=== PATIENT | male | born 1965 | race African-American/Black ===

== ENCOUNTER 2019-03-24 15:17 | Emergency (ER) | payer OTHER ==
[2019-03-24 15:47] VITALS: BP 126/67; PULSE 85; TEMP 97.5; BMI 42.5
--- NOTE | 2019-03-24 15:47 | PDOC ---
Rapid Medical Evaluation Chief Complaint: Injury Time Seen by Provider: 03/24/19 15:43 Medical Evaluation: Allergies Allergy/AdvReac Type Severity Reaction Status Date / Time No Known Allergies Allergy Verified 03/24/19 15:43 03/24/19 15:45 Pt c/o:fell at work down 3 stairs, abrasion to left elbow, pain to back and left neck Pt on brief exam: FROM of left elbow, no midline tenderness Pt ordered for: none Pt to proceed to the ED Discharge Disposition - Diagnosis Fall, Cervical strain, Lumbar strain - Discharge Dispostion Disposition: HOME Condition at time of disposition: Stable - Prescriptions Prescriptions: Cyclobenzaprine HCl [Flexeril 10 mg] 10 mg PO HS PRN #10 tablet PRN Reason: Muscle Spasms Ibuprofen [Motrin -] 600 mg PO TID #30 tablet - Referrals Referrals: Rakesh Oneil MD, [facility] [Staff Physician] - Aamir Chang [Primary Care Provider] - - Patient Instructions Additional Instructions: Please take the Motrin Flexeril as directed. Return to the emergency room for worsening symptoms and without fail follow-up with neurosurgery in 1 to 2 days for further evaluation and treatment options. - Post Discharge Activity Work/School Note: Back to Work
--- NOTE | 2019-03-24 16:18 | PDOC ---
History of Present Illness - General Chief Complaint: Injury Stated Complaint: FALL Time Seen by Provider: 03/24/19 15:43 - History of Present Illness Initial Comments: 03/24/19 16:13 53-year-old male without comorbidities presents for evaluation of neck and lower back pain after a fall down a few steps earlier today while at work. No radicular or systemic symptoms. No headaches post injury nausea vomiting or visual changes. Only left-sided neck and shoulder pain and lower back pain without radicular symptoms loss of bowel or bladder function or saddle paresthesias Past History - Past Medical History Allergies/Adverse Reactions: Allergies Allergy/AdvReac Type Severity Reaction Status Date / Time No Known Allergies Allergy Verified 03/24/19 15:43 Home Medications: Ambulatory Orders Cyclobenzaprine HCl [Flexeril 10 mg] 10 mg PO HS PRN #10 tablet 03/24/19 Ibuprofen [Motrin -] 600 mg PO TID #30 tablet 03/24/19 CVA: No COPD: No CHF: No DVT: No Dementia: No HTN: Yes - Immunization History Immunization Up to Date: Yes - Psycho Social/Smoking Cessation Hx Smoking History: Never smoked Hx Alcohol Use: No Drug/Substance Use Hx: No Review of Systems - Review of Systems Musculoskeletal: Yes: Back Pain, Joint Pain, Neck Pain *Physical Exam - Vital Signs Last Vital Signs Temp Pulse Resp BP Pulse Ox 97.5 F L 85 16 126/67 97 03/24/19 15:44 03/24/19 15:44 03/24/19 15:44 03/24/19 15:44 03/24/19 15:44 - Physical Exam 03/24/19 16:14 GENERAL: The patient is awake, alert, and fully oriented, in no acute distress. HEAD: Normal with no signs of trauma. EYES: sclera anicteric, conjunctiva clear. ENT: Ears normal tympanic membranes normal oropharynx clear uvula midline NECK: Normal range of motion LUNGS: Breath sounds equal, clear to auscultation bilaterally. No wheezes, and no crackles. HEART: S1 and S2 without murmur, rub or gallop. ABDOMEN: Soft, nontender, normoactive bowel sounds. No guarding, no rebound. No masses. EXTREMITIES: Normal range of motion, no edema. No clubbing or cyanosis. No cords, erythema, or tenderness. NEUROLOGICAL: Cranial nerves II through XII grossly intact. Normal speech, normal gait. PSYCH: Normal mood, normal affect. SKIN: Warm, Dry, normal turgor, no rashes or lesions noted. Lumbar spine skin color and temperature are normal. There is full nonpainful range of motion. 5 out of 5 strength in bilateral lower extremities. Straight leg raise test is negative bilaterally. Thighs and calves are soft and nontender. There are no gross sensory motor deficits. Neurovascularly intact. There is moderate bilateral paralumbar musculature spasm and tenderness. No midline tenderness mild palpable spasm. Cervical spine skin color and temperature are normal. There is mildly decreased nonpainful range of motion. No mild palpable left sided spasm. There is 5 out of 5 strength and thumb extension abduction and wrist flexion and extension elbow flexion and extension. 5 out of 5 strength in deltoid. There are no gross sensory motor deficits. Neurovascularly intact. Medical Decision Making - Medical Decision Making 03/24/19 16:18 Cervical and lumbar strain follow-up with neurosurgery Flexeril and Motrin for pain no gross deficits on examination no midline tenderness Discharge - Discharge Information Problems reviewed: Yes Clinical Impression/Diagnosis: Fall, Cervical strain, Lumbar strain Condition: Stable Disposition: HOME - Admission No - Additional Discharge Information Prescriptions: Cyclobenzaprine HCl [Flexeril 10 mg] 10 mg PO HS PRN #10 tablet PRN Reason: Muscle Spasms Ibuprofen [Motrin -] 600 mg PO TID #30 tablet - Follow up/Referral Referrals: Aamir Chang [Primary Care Provider] - Rakesh Oneil MD, [facility] [Staff Physician] - - Patient Discharge Instructions Additional Instructions: Please take the Motrin Flexeril as directed. Return to the emergency room for worsening symptoms and without fail follow-up with neurosurgery in 1 to 2 days for further evaluation and treatment options. - Post Discharge Activity Work/Back to School Note: Back to Work
== END 2019-03-24 16:26 | disposition home or self-care (01) ==
LOC: JERFT 15:17
DX: S39.012A Strain of muscle, fascia and tendon of lower back, initial encounter (principal); S16.1XXA Strain of muscle, fascia and tendon at neck level, initial encounter; S50.312A Abrasion of left elbow, initial encounter; W10.8XXA Fall (on) (from) other stairs and steps, initial encounter; Y93.89 Activity, other specified; Y92.69 Other specified industrial and construction area as the place of occurrence of the external cause; Y99.0 Civilian activity done for income or pay; I10 Essential (primary) hypertension
CPT/HCPCS: 99281-25

== ENCOUNTER 2021-10-18 04:15 | Day surgery (SDC) | payer OTHER ==
[2021-10-16 15:01] VITALS: BMI 42.5
[2021-10-18] MEDS ORDERED: MIDAZOLAM HCL 2 MG/2 ML SINGLE DOSE VIAL ONE (09:15)
[2021-10-18] MEDS ORDERED: LIDOCAINE HCL 1%, 10 MG/ML (20ML VIAL) ONE (09:29)
[2021-10-18] MEDS ORDERED: BUPIVACAINE HCL/PF 0.5% (5MG/ML) 10 ML VIAL ONE (09:29)
[2021-10-18] MEDS ORDERED: PROPOFOL 20 ML ONE ×4 (09:57→14:42)
[2021-10-18] MEDS ORDERED: ceFAZolin SODIUM 1 GM VIAL IVPB ONE (10:05)
[2021-10-18] MEDS ORDERED: KETOROLAC TROMETHAMINE 30 MG/1 ML VIAL ONE ×2 (10:51→14:29)
[2021-10-18] MEDS ORDERED: GLYCOPYRROLATE 0.2 MG/1 ML VIAL ONE (10:51)
[2021-10-18] MEDS ORDERED: BUPIVACAINE HCL/PF 0.5% (5MG/ML) 10 ML VIAL IJ ONE ×2 (10:51)
[2021-10-18] MEDS ORDERED: DEXAMETHASONE SOD PHOSPHATE 4 MG/1 ML VIAL ONE ×2 (10:51→14:29)
[2021-10-18] MEDS ORDERED: ONDANSETRON 4 MG/2 ML VIAL ONE ×2 (10:51→14:29)
[2021-10-18] MEDS ORDERED: ceFAZolin SODIUM 1 GM VIAL ONE (10:51)
[2021-10-18] MEDS ORDERED: LIDOCAINE HCL 1%, 10 MG/ML (20ML VIAL) ID ONE ×2 (10:51)
[2021-10-18] MEDS ORDERED: LIDOCAINE HCL/PF 2% SDV 5ML VIAL ONE ×2 (10:51→14:29)
[2021-10-18] MEDS ORDERED: SODIUM CHLORIDE 0.9% P/F 10 ML VIAL IJ ONE (10:51)
[2021-10-18] MEDS ORDERED: ROCURONIUM BROMIDE 50 MG/5 ML SYRINGE ONE ×2 (10:53→14:28)
[2021-10-18] MEDS ORDERED: oxyCODONE HCL 5 MG TABLET PO PRN ×2 (13:04)
[2021-10-18] MEDS ORDERED: ONDANSETRON 4 MG/2 ML VIAL IVPUSH PRN (13:04)
[2021-10-18] MEDS ORDERED: LACTATED RINGERS SOLUTION 1,000 ML IV SCH (13:15)
[2021-10-18 13:27] VITALS: RESP 16
[2021-10-18] MEDS ORDERED: NEOSTIGMINE METHYLSULFATE 0.5 MG/ML - 10 ML MDV ONE (14:28)
[2021-10-18 14:35] VITALS: BP 126/64; PULSE 66; TEMP 97.7
== END 2021-10-18 14:50 | disposition home or self-care (01) ==
LOC: JASU-SURG 04:15
PROVIDERS: ATTEND Orthopaedic Surgery
PROC: 00S Central Nervous System and Cranial Nerves, Reposition (ICD-10-PCS; principal; 2021-10-18 09:00)
DX: G56.21 Lesion of ulnar nerve, right upper limb (principal)
CPT/HCPCS: 82962; 94760

== ENCOUNTER 2022-09-13 05:22 | Day surgery (SDC) | payer OTHER ==
[2022-09-12 12:58] VITALS: BMI 40.4
[~2022-09-13 05:22] MED LIST: BUPIVACAINE HCL/PF 0.5% (5 MG/ML) 30 ML VIAL IJ ONE; LIDOCAINE HCL 1%, 10 MG/ML (20ML VIAL) INF ONE
[2022-09-13] MEDS ORDERED: PROMETHAZINE HCL 25 MG/1 ML VIAL IVPB PRN (07:25)
[2022-09-13] MEDS ORDERED: ONDANSETRON 4 MG/2 ML VIAL IVPUSH PRN (07:25)
[2022-09-13] MEDS ORDERED: oxyCODONE HCL 5 MG TABLET PO PRN (07:25)
[2022-09-13] MEDS ORDERED: LACTATED RINGERS SOLUTION 1,000 ML IV SCH (07:30)
[2022-09-13] MEDS ORDERED: LIDOCAINE HCL 1%, 10 MG/ML (10ML VIAL) MDV ONE (09:10)
[2022-09-13] MEDS ORDERED: BUPIVACAINE HCL/PF 0.5% (5MG/ML) 10 ML VIAL ONE (09:10)
[2022-09-13] MEDS ORDERED: MIDAZOLAM HCL 2 MG/2 ML SINGLE DOSE VIAL ONE (09:18)
[2022-09-13] MEDS ORDERED: SODIUM CHLORIDE 0.9% P/F 10 ML VIAL IJ ONE (09:18)
[2022-09-13] MEDS ORDERED: PROPOFOL 20 ML ONE (09:18)
[2022-09-13] MEDS ORDERED: LIDOCAINE HCL/PF 2% SDV 5ML VIAL ONE (09:18)
[2022-09-13] MEDS ORDERED: ceFAZolin SODIUM 1 GM VIAL ONE (09:18)
[2022-09-13] MEDS ORDERED: ceFAZolin SODIUM 1 GM VIAL IVPB ONE ×2 (09:37)
[2022-09-13] MEDS ORDERED: KETOROLAC TROMETHAMINE 30 MG/1 ML VIAL ONE (09:41)
[2022-09-13] MEDS ORDERED: DEXAMETHASONE SOD PHOSPHATE 4 MG/1 ML VIAL ONE (09:41)
[2022-09-13] MEDS ORDERED: ONDANSETRON 4 MG/2 ML VIAL ONE (09:41)
[2022-09-13] MEDS ORDERED: LIDOCAINE HCL 1%, 10 MG/ML (20ML VIAL) INF ONE (09:50)
[2022-09-13] MEDS ORDERED: BUPIVACAINE HCL/PF 0.5% (5 MG/ML) 30 ML VIAL IJ ONE (09:50)
[2022-09-13 11:35] VITALS: RESP 18; TEMP 97.8
[2022-09-13 12:21] VITALS: BP 110/70; PULSE 60
== END 2022-09-13 12:15 | disposition home or self-care (01) ==
LOC: JASU-SURG 05:22
PROVIDERS: ATTEND Orthopaedic Surgery
PROC: 0LN80ZZ Release Left Hand Tendon, Open Approach (ICD-10-PCS; principal; 2022-09-13 09:00)
DX: M65.332 Trigger finger, left middle finger (principal)
CPT/HCPCS: 82962; 88304-TC; 94760

== ENCOUNTER 2023-10-03 13:21 | Inpatient (IN) | payer OTHER ==
[2023-10-03] MEDS ORDERED: ONDANSETRON 4 MG/2 ML VIAL ONE (14:13)
[2023-10-03 15:04] LABS: BASO % 0.5 % (0-2.0); EOS % 0.1 % (0-4.5); HEMATOCRIT 39.6 % (35.4-49); HEMOGLOBIN 13.6 GM/dL (11.7-16.9); LYMPH % 23.9 % (8-40); MCH 31.3 pg (25.7-33.7); MCHC 34.4 g/dl (32.0-35.9); MEAN CELL VOLUME 90.8 fl (80-96); MEAN PLT VOLUME 8.9 fl (7.5-11.1); MONO % 7.5 % (3.8-10.2); PLATELET COUNT 288 10^3/uL (134-434); RBC 4.36 M/mm3 (4.00-5.60); RDW 13.8 % (11.9-15.9); WHITE BLOOD COUNT 11.5 K/mm3 (4.0-10.0)
[2023-10-03 15:05] LABS: EPI CELLS 19 /uL (0-25.1); HYALINE CASTS 3 /uL (0-3.1); PH,URINE 5.5 (5.0-8.0); URINE APPEARANCE CLEAR; URINE BACTERIA 2 /uL (0-1359); URINE BILIRUBIN 2+ (NEGATIVE); URINE COLOR DK YELLOW; URINE GLUCOSE (UA) NEGATIVE (NEGATIVE); URINE KETONE 3+ (NEGATIVE); URINE LEUK ESTERASE NEGATIVE (NEGATIVE); URINE NITRITE NEGATIVE (NEGATIVE); URINE PROTEIN 1+ (NEGATIVE); URINE RBC 15 /uL (0-23.9); URINE WBC 12 /uL (0-25.8)
[2023-10-03] MEDS: SODIUM CHLORIDE 0.9% 1000 ML INFUS.BAG IV ONE (15:30)
[2023-10-03] MEDS: ONDANSETRON 4 MG/2 ML VIAL IVPUSH ONE (15:30)
[2023-10-03 15:35] LABS: POTASSIUM 3.9 mmol/L (3.5-5.1)
[2023-10-03 15:38] LABS: ALBUMIN 3.9 g/dl (3.4-5.0); BLOOD UREA NITROGEN 8.6 mg/dL (7-18); CALCIUM 9.5 mg/dL (8.5-10.1)
[2023-10-03 15:43] LABS: BILIRUBIN,TOTAL 1.2 mg/dL (0.2-1); TOT PROT 8.3 g/dl (6.4-8.2)
[2023-10-03] MEDS: LACTATED RINGERS SOLUTION 1000 ML INFUS.BAG IV ONE (18:31)
[2023-10-03] MEDS: DEXTROSE 5%-NORMAL SALINE 1,000 ML IV SCH (21:58)
[2023-10-04] MEDS ORDERED: NYSTATIN 500,000 UNITS/5 ML SUSPENSION PO SCH
[2023-10-04] MEDS: INSULIN ASPART SLIDING SCALE (NOVOLOG) 1 VIAL SQ SCH (00:26)
[2023-10-04 01:44] VITALS: BMI 34.5
[2023-10-04 08:34] LABS: HEMOGLOBIN 12.6 GM/dL (11.7-16.9); MEAN CELL VOLUME 91.3 fl (80-96); MEAN PLT VOLUME 8.9 fl (7.5-11.1); PLATELET COUNT 252 10^3/uL (134-434); RBC 3.95 M/mm3 (4.00-5.60); RDW 13.7 % (11.9-15.9); WHITE BLOOD COUNT 9.5 K/mm3 (4.0-10.0)
[2023-10-04 08:37] LABS: INR 1.49 (0.83-1.09); PROTHROMBIN TIME (PATIENT) 16.9 SEC (9.7-13.0)
[2023-10-04 09:01] LABS: POTASSIUM 3.6 mmol/L (3.5-5.1)
[2023-10-04 09:05] LABS: CALCIUM 8.9 mg/dL (8.5-10.1)
[2023-10-04 09:06] LABS: BLOOD UREA NITROGEN 6.4 mg/dL (7-18)
[2023-10-04 09:09] LABS: CREATININE 0.7 mg/dL (0.55-1.3); PHOSPHOROUS 3.8 mg/dL (2.5-4.9)
[2023-10-04] MEDS ORDERED: DEXTROSE 5%-NORMAL SALINE 1,000 ML IV SCH (10:29)
[2023-10-04] MEDS: DEXTROSE 5%-NORMAL SALINE 1,000 ML IV SCH (10:48)
[2023-10-04] MEDS: ONDANSETRON 4 MG/2 ML VIAL IVPUSH PRN (15:08)
[2023-10-04 15:33] LABS: HIV INTERPRETATION NEGATIVE (NEGATIVE)
[2023-10-04] MEDS: PANTOPRAZOLE SODIUM 40 MG VIAL IVPUSH SCH (21:36)
[2023-10-05 09:27] LABS: POTASSIUM 3.9 mmol/L (3.5-5.1)
[2023-10-05 09:30] LABS: BLOOD UREA NITROGEN 5.9 mg/dL (7-18); CALCIUM 8.5 mg/dL (8.5-10.1)
[2023-10-05 09:34] LABS: CREATININE 0.8 mg/dL (0.55-1.3)
[2023-10-05] MEDS: ONDANSETRON 4 MG/2 ML VIAL IVPUSH SCH (13:50)
[2023-10-06 08:07] LABS: PARATHYROID HORM INTACT 16 pg/mL (15-65)
[2023-10-06 09:29] LABS: POTASSIUM 3.3 mmol/L (3.5-5.1)
[2023-10-06 09:31] LABS: BLOOD UREA NITROGEN 3.8 mg/dL (7-18); CALCIUM 8.2 mg/dL (8.5-10.1)
[2023-10-06 09:34] LABS: CREATININE 0.8 mg/dL (0.55-1.3)
[2023-10-06 09:41] LABS: ALBUMIN 2.8 g/dl (3.4-5.0); TOT PROT 6.1 g/dl (6.4-8.2)
[2023-10-06] MEDS: NYSTATIN 500,000 UNITS/5 ML SUSPENSION PO SCH (18:23)
[2023-10-07] MEDS: AMINO ACIDS 4.25%/D5W 1,000 ML IV SCH (15:25)
[2023-10-07] MEDS ORDERED: ONDANSETRON 4 MG/2 ML VIAL IVPUSH PRN (17:52)
[2023-10-07] MEDS ORDERED: LACTATED RINGERS SOLUTION 1,000 ML/1,000 ML INFUS.BAG IV SCH (18:00)
[2023-10-07] MEDS: LACTATED RINGERS SOLUTION 1,000 ML/1,000 ML INFUS.BAG IV SCH (18:34)
[2023-10-07 19:03] LABS: BASO % 0.6 % (0-2.0); EOS % 0.7 % (0-4.5); LYMPH % 25.1 % (8-40); MCH 30.9 pg (25.7-33.7); MCHC 33.3 g/dl (32.0-35.9); MEAN CELL VOLUME 92.8 fl (80-96); NEUT % 62.6 % (42.8-82.8); RBC 3.88 M/mm3 (4.00-5.60); RDW 13.9 % (11.9-15.9)
[2023-10-07 19:14] LABS: POTASSIUM 3.5 mmol/L (3.5-5.1)
[2023-10-07 19:21] LABS: TOT PROT 6.3 g/dl (6.4-8.2)
[2023-10-07 19:23] LABS: CALCIUM 8.6 mg/dL (8.5-10.1)
[2023-10-07 19:24] LABS: ALBUMIN 2.7 g/dl (3.4-5.0); BLOOD UREA NITROGEN 4.8 mg/dL (7-18)
[2023-10-07 19:27] LABS: CREATININE 0.8 mg/dL (0.55-1.3); PHOSPHOROUS 2.8 mg/dL (2.5-4.9)
[2023-10-07 19:28] LABS: BILIRUBIN,TOTAL 1.1 mg/dL (0.2-1)
[2023-10-07 19:39] LABS: WHITE BLOOD COUNT 11.5 K/mm3 (4.0-10.0)
[2023-10-08] MEDS: METOCLOPRAMIDE HCL INJECTION 10 MG/2 ML VIAL IVPUSH PRN (06:54)
[2023-10-08 09:06] LABS: POTASSIUM 3.3 mmol/L (3.5-5.1)
[2023-10-08 09:09] LABS: HEMATOCRIT 34.6 % (35.4-49); HEMOGLOBIN 12.1 GM/dL (11.7-16.9); MCH 31.9 pg (25.7-33.7); MCHC 35.1 g/dl (32.0-35.9); MEAN CELL VOLUME 90.9 fl (80-96); MEAN PLT VOLUME 8.9 fl (7.5-11.1); PLATELET COUNT 188 10^3/uL (134-434); RBC 3.81 M/mm3 (4.00-5.60); WHITE BLOOD COUNT 8.4 K/mm3 (4.0-10.0)
[2023-10-08 09:25] LABS: CALCIUM 8.3 mg/dL (8.5-10.1)
[2023-10-08 09:26] LABS: MAGNESIUM 1.9 mg/dL (1.8-2.4)
[2023-10-08 09:28] LABS: ALBUMIN 2.8 g/dl (3.4-5.0); CREATININE 0.8 mg/dL (0.55-1.3); PHOSPHOROUS 2.9 mg/dL (2.5-4.9)
[2023-10-08 09:29] LABS: BLOOD UREA NITROGEN 4.5 mg/dL (7-18)
[2023-10-08 09:30] LABS: BILIRUBIN,TOTAL 1.2 mg/dL (0.2-1); TOT PROT 6.4 g/dl (6.4-8.2)
[2023-10-08] MEDS ORDERED: POTASSIUM CHLORIDE ORAL LIQUID 20 MEQ/15 ML PO ONE (18:36)
[2023-10-08] MEDS: POTASSIUM CHLORIDE ORAL LIQUID 20 MEQ/15 ML PO ONE (21:59)
[2023-10-09] MEDS: KCL 10 MEQ IVPB 10 MEQ/100 ML INFUS.BAG IVPB SCH (00:41)
[2023-10-09] MEDS ORDERED: INSULIN ASPART SLIDING SCALE (NOVOLOG) 1 VIAL SQ ONE (06:36)
[2023-10-09 10:14] LABS: HEMATOCRIT 36.2 % (35.4-49); HEMOGLOBIN 12.5 GM/dL (11.7-16.9); MCH 31.1 pg (25.7-33.7); MCHC 34.4 g/dl (32.0-35.9); MEAN CELL VOLUME 90.5 fl (80-96); MEAN PLT VOLUME 8.7 fl (7.5-11.1); PLATELET COUNT 207 10^3/uL (134-434); RDW 13.9 % (11.9-15.9); WHITE BLOOD COUNT 8.7 K/mm3 (4.0-10.0)
[2023-10-09 10:35] LABS: POTASSIUM 3.7 mmol/L (3.5-5.1)
[2023-10-09 10:42] LABS: CALCIUM 8.4 mg/dL (8.5-10.1)
[2023-10-09 10:43] LABS: ALBUMIN 2.8 g/dl (3.4-5.0); BLOOD UREA NITROGEN 4.9 mg/dL (7-18)
[2023-10-09 10:45] LABS: PHOSPHOROUS 2.7 mg/dL (2.5-4.9)
[2023-10-09 10:46] LABS: CREATININE 0.7 mg/dL (0.55-1.3)
[2023-10-09 10:47] LABS: BILIRUBIN,TOTAL 1.2 mg/dL (0.2-1); TOT PROT 6.8 g/dl (6.4-8.2)
[2023-10-09] MEDS: AMOXICILLIN 500 MG CAPSULE (FP) PO SCH (14:02)
[2023-10-09] MEDS: CLARITHROMYCIN 500 MG TABLET (UD) PO SCH (14:04)
[2023-10-09] MEDS: ONDANSETRON 4 MG TABLET PO SCH (17:10)
[2023-10-09] MEDS: LIPASE/PROTEASE/AMYLASE 36,000 UNIT CAPSULE PO SCH (18:37)
[2023-10-09] MEDS: ONDANSETRON *ODT* 4 MG TABLET SL SCH (23:08)
[2023-10-10 09:21] LABS: MCH 31.2 pg (25.7-33.7); MCHC 34.4 g/dl (32.0-35.9); MEAN CELL VOLUME 90.7 fl (80-96); MEAN PLT VOLUME 8.5 fl (7.5-11.1); PLATELET COUNT 203 10^3/uL (134-434); RBC 3.86 M/mm3 (4.00-5.60); RDW 13.6 % (11.9-15.9); WHITE BLOOD COUNT 8.6 K/mm3 (4.0-10.0)
[2023-10-10 09:37] LABS: POTASSIUM 3.6 mmol/L (3.5-5.1)
[2023-10-10 09:47] LABS: ALBUMIN 2.8 g/dl (3.4-5.0); BLOOD UREA NITROGEN 4.7 mg/dL (7-18); CREATININE 0.7 mg/dL (0.55-1.3); PHOSPHOROUS 3.1 mg/dL (2.5-4.9)
[2023-10-10 09:48] LABS: CALCIUM 8.5 mg/dL (8.5-10.1); TOT PROT 6.5 g/dl (6.4-8.2)
[2023-10-10 09:55] LABS: BILIRUBIN,TOTAL 1.1 mg/dL (0.2-1)
[2023-10-10] MEDS: ONDANSETRON *ODT* 4 MG TABLET SL SCH (10:43)
[2023-10-11 09:58] LABS: HEMATOCRIT 34.7 % (35.4-49); HEMOGLOBIN 12.1 GM/dL (11.7-16.9); MCH 31.6 pg (25.7-33.7); MEAN CELL VOLUME 90.2 fl (80-96); MEAN PLT VOLUME 7.9 fl (7.5-11.1); PLATELET COUNT 204 10^3/uL (134-434); RBC 3.84 M/mm3 (4.00-5.60); RDW 13.9 % (11.9-15.9); WHITE BLOOD COUNT 8.1 K/mm3 (4.0-10.0)
[2023-10-11 10:15] LABS: POTASSIUM 3.6 mmol/L (3.5-5.1)
[2023-10-11 10:24] LABS: ALBUMIN 2.8 g/dl (3.4-5.0)
[2023-10-11 10:25] LABS: BLOOD UREA NITROGEN 5.1 mg/dL (7-18); CALCIUM 8.7 mg/dL (8.5-10.1)
[2023-10-11 10:28] LABS: CREATININE 0.8 mg/dL (0.55-1.3); PHOSPHOROUS 3.1 mg/dL (2.5-4.9)
[2023-10-11 10:29] LABS: TOT PROT 6.4 g/dl (6.4-8.2)
[2023-10-11] MEDS: AMINO ACIDS/PROTEIN HYDROLYS 30 ML LIQUID.PKT PO SCH (17:20)
[2023-10-12 08:49] LABS: HEMATOCRIT 35.5 % (35.4-49); HEMOGLOBIN 12.4 GM/dL (11.7-16.9); MCH 31.6 pg (25.7-33.7); MEAN CELL VOLUME 90.4 fl (80-96); MEAN PLT VOLUME 8.2 fl (7.5-11.1); PLATELET COUNT 220 10^3/uL (134-434); RBC 3.92 M/mm3 (4.00-5.60); RDW 13.7 % (11.9-15.9); WHITE BLOOD COUNT 10.2 K/mm3 (4.0-10.0)
[2023-10-12 09:24] LABS: POTASSIUM 3.6 mmol/L (3.5-5.1)
[2023-10-12 09:37] LABS: ALBUMIN 2.9 g/dl (3.4-5.0); BLOOD UREA NITROGEN 5.4 mg/dL (7-18); CALCIUM 8.8 mg/dL (8.5-10.1)
[2023-10-12 09:38] LABS: MAGNESIUM 2.2 mg/dL (1.8-2.4)
[2023-10-12 09:39] LABS: TOT PROT 6.6 g/dl (6.4-8.2)
[2023-10-12 09:40] LABS: CREATININE 0.8 mg/dL (0.55-1.3)
[2023-10-12 09:41] LABS: PHOSPHOROUS 3.4 mg/dL (2.5-4.9)
[2023-10-13 09:26] VITALS: BP 123/84; PULSE 77; RESP 19; TEMP 98.4
== END 2023-10-13 18:59 | disposition home or self-care (01) | DRG 383 ==
LOC: JER 13:21 → JERBED 17:59 → J6S 10-04 00:56
PROVIDERS: ADMIT Internal Medicine; ATTEND Internal Medicine
PROC: 0DB68ZX Excision of Stomach, Via Natural or Artificial Opening Endoscopic, Diagnostic (ICD-10-PCS; 2023-10-04)
PROC: 0DB98ZX Excision of Duodenum, Via Natural or Artificial Opening Endoscopic, Diagnostic (ICD-10-PCS; principal; 2023-10-04 14:30)
DX: K26.3 Acute duodenal ulcer without hemorrhage or perforation (principal); K85.90 Acute pancreatitis without necrosis or infection, unspecified; B37.0 Candidal stomatitis; E87.3 Alkalosis; B96.81 Helicobacter pylori [H. pylori] as the cause of diseases classified elsewhere; E78.5 Hyperlipidemia, unspecified; E86.0 Dehydration; R11.2 Nausea with vomiting, unspecified; E11.43 Type 2 diabetes mellitus with diabetic autonomic (poly)neuropathy; K31.84 Gastroparesis; E56.8 Deficiency of other vitamins; E87.6 Hypokalemia; K76.0 Fatty (change of) liver, not elsewhere classified; K29.60 Other gastritis without bleeding; K20.80 Other esophagitis without bleeding; R63.4 Abnormal weight loss; Z68.34 Body mass index [BMI] 34.0-34.9, adult; Z87.11 Personal history of peptic ulcer disease
CPT/HCPCS: 0241U-QW; 36415; 71046-TC-FY; 74018-TC-FY; 74177-TC; 74182-TC; 80048; 80053; 81003; 82248; 82310; 82607; 82746; 82941; 82962; 83036; 83690; 83735; 83970; 84100; 84443; 84484; 85025; 85027; 85610; 86301; 86850; 86900; 86901; 87045; 87046; 87205; 87338; 87389; 88305-TC; 88341-TC; 93005; 93010; 99285-25; Q0162; Q9967